=== PATIENT | female | born 1985 | race African-American/Black ===

== ENCOUNTER 2023-03-11 07:56 | Emergency (ER) | payer BC, OTHER ==
[~2023-03-11] VITALS: Ht 180.3 cm; Wt 75.7 kg
[2023-03-11] MEDS ORDERED: MOUNJARO10 MG/0.5 SQ (08:15)
== END 2023-03-11 14:32 | disposition home or self-care (01) ==
LOC: ER 07:56
DX: K52.9 Noninfective gastroenteritis and colitis, unspecified (principal); K62.5 Hemorrhage of anus and rectum; R10.9 Unspecified abdominal pain
CPT/HCPCS: 36415; 74177; Q9965